=== PATIENT | female | born 1965 | race Caucasian/White ===

== ENCOUNTER 2017-05-09 12:06 | Outpatient (CLI) | payer BC ==
[~2017-05-09] VITALS: Ht 157.5 cm; Wt 59.1 kg
[~2017-05-09 12:06] MED LIST: LVT.112T PO
[2017-05-09] MEDS ORDERED: CHOL500061 PO (12:20)
[2017-05-09] MEDS ORDERED: CALC600T12 PO (12:20)
[2017-05-09] MEDS ORDERED: ASCO-129 PO (12:20)
[2017-05-09] MEDS ORDERED: VITA400C60 PO (12:20)
[2017-05-09] MEDS ORDERED: VITA1CAP PO (12:20)
[2017-05-09] MEDS ORDERED: BACI1CAP6 PO (12:20)
[2017-05-09] MEDS ORDERED: LORA10TA76 PO (12:21)
[2017-05-09 12:22] VITALS: BP 107/56
[2017-05-09 12:48] LABS: BASOPHILS % (AUTO) 0 % (0-10); EOSINOPHILS # (AUTO) 0.3 10^3/uL (0.0-0.3); EOSINOPHILS % (AUTO) 3 % (0-10); LYMPHOCYTES % (AUTO) 21 % (12-44); MEAN CORPUSCULAR HEMOGLOBIN 31 PG (25-34); MEAN CORPUSCULAR HGB CONC 34 G/DL (32-36); MEAN CORPUSCULAR VOLUME 91 FL (80-99); MEAN PLATELET VOLUME 10.2 FL (7.4-10.4); MONOCYTES # (AUTO) 1.1 X 10^3 (0.0-1.0); MONOCYTES % (AUTO) 12 % (0-12); NEUTROPHILS % (AUTO) 63 % (42-75); PLATELET COUNT 335 10^3/uL (130-400); RED BLOOD COUNT 4.56 10^6/uL (4.35-5.85); RED CELL DISTRIBUTION WIDTH 12.6 % (10.0-14.5); WHITE BLOOD COUNT 9.5 10^3/uL (4.3-11.0)
== END 2017-05-09 14:10 | disposition home or self-care (01) ==
LOC: PREOP 12:06
PROVIDERS: ATTEND Obstetrics & Gynecology
DX: Z01.812 Encounter for preprocedural laboratory examination (principal); Z11.2 Encounter for screening for other bacterial diseases; N75.0 Cyst of Bartholin's gland
CPT/HCPCS: 36415; 85025; 86850; 86900; 86901; 87081

== ENCOUNTER 2017-05-15 06:55 | Day surgery (SDC) | payer BC ==
[~2017-05-15] VITALS: Ht 157.5 cm; Wt 59.1 kg
[~2017-05-15 06:55] MED LIST changes: +ASCO-129 PO; +BACI1CAP6 PO; +CALC600T12 PO; +CHOL500061 PO; +LORA10TA76 PO; +VITA1CAP PO; +VITA400C60 PO
[2017-05-15] MEDS ORDERED: LACTATED RINGERS 1,000 ML IV PRN (07:10)
[2017-05-15] MEDS ORDERED: MIDAZOLAM 2 MG/2 ML (VERSED) VIAL IV ONE (07:15)
[2017-05-15 07:30] VITALS: BP 102/47
[2017-05-15] MEDS ORDERED: metroNIDAZOLE 500MG/100ML IVPB 100 ML ONE (07:36)
[2017-05-15] MEDS ORDERED: ceFAZolin 1,000 MG (ANCEF) VIAL ONE (07:36)
[2017-05-15] MEDS ORDERED: NS (IVPB) 50 ML ONE (07:36)
[2017-05-15] MEDS ORDERED: CATHETER FLUSH 10 ML SYR IV PRN (07:45)
[2017-05-15] MEDS ORDERED: metroNIDAZOLE 500 MG/100 ML IVPB (PRE-MIX) IV ONE (07:45)
[2017-05-15] MEDS ORDERED: ceFAZolin 1 GM/NS 50 ML IVPB IV ONE ×2 (07:45)
[2017-05-15] MEDS ORDERED: proPOfol 200 MG/20 ML (DIPRIVAN) VIAL IV ONE (08:44)
[2017-05-15] MEDS ORDERED: fentaNYL INJECTION 100 MCG/2 ML AMP ONE ×2 (08:45→09:25)
[2017-05-15] MEDS ORDERED: MIDAZOLAM 2 MG/2 ML (VERSED) VIAL ONE (08:45)
--- NOTE | 2017-05-15 08:48 | Progress Note-Pre Operative ---
Pre-Operative Progress Note H&P Reviewed The H&P was reviewed, patient examined and no changes noted. Date Seen by Provider: May 15, 2017 Time Seen by Provider: 08:35 Date H&P Reviewed: May 15, 2017 Time H&P Reviewed: 08:35 Pre-Operative Diagnosis: Bartholin's Gland Cyst, Postmenopausal SINGH PENDLETON DO May 15, 2017 8:48 am
[2017-05-15] MEDS ORDERED: LACTATED RINGERS 1,000 ML IV ONE (08:55)
[2017-05-15] MEDS ORDERED: SEVOFLURANE (ULTANE) 15 ML INHAL SOLN ONE ×3 (08:55→09:31)
[2017-05-15] MEDS ORDERED: BUPIVACAINE 0.25% 30 ML (SENSORCAINE) VIAL ONE (09:13)
[2017-05-15] MEDS ORDERED: DEXAMETHASONE PF 10 MG/ML (DECADRON) VIAL ONE (09:31)
[2017-05-15] MEDS ORDERED: ONDANSETRON 4 MG/2 ML (SDV) Z0FRAN ONE (09:31)
[2017-05-15] MEDS ORDERED: D5 LR IV SOLUTION 1,000 ML IV SCH (09:55)
[2017-05-15] MEDS ORDERED: KETOROLAC 30 MG/ML VIAL IVP ONE ×2 (10:00→10:45)
[2017-05-15] MEDS ORDERED: ONDANSETRON 4 MG/2 ML (SDV) Z0FRAN IVP PRN ×2 (10:00→10:45)
[2017-05-15] MEDS ORDERED: HYDROcodone/APAP 5 MG/325 MG (LORTAB) TAB PO PRN (10:00)
--- NOTE | 2017-05-15 10:05 | Discharge Inst-Women's Service ---
Discharge Inst-Women's Serv Depart Medication/Instructions New, Converted or Re-Newed RX: RX on Chart Consults/Follow Up Additional Follow Up: Yes Orders/Referrals Return to [facility] office in 2-3 weeks Activity Activity: Activity as Tolerated Driving Instructions: No Driving for 1 Week NO SMOKING: NO SMOKING Nothing Inside Vagina: No Douching, No Towner, No Tampons Diet Discharge Diet: No Restrictions Symptoms to Report to : Bleeding Excessive, Pain Increased, Fever Over 101 Degrees F, Vaginal Bleeding Increase, Questions/Concerns For Any Problems or Questions: Contact Your Physician Skin/Wound Care Infection Signs and Symptoms: Increased Redness, Foul Odor of Wound, Increased Drainage, Skin Itchy or Has a Rash, Increased Swelling, Temperature Above 101 F Bathing Instructions: Shower (sitz baths) SINGH PENDLETON DO May 15, 2017 10:05
[2017-05-15] MEDS ORDERED: IBUP-1773 PO (10:06)
[2017-05-15] MEDS ORDERED: HYDR-3812 PO (10:06)
[2017-05-15] MEDS ORDERED: morphine INJ 10 MG/ML 1ML (SYR OR VIAL) ONE (10:23)
[2017-05-15] MEDS ORDERED: morphine INJ 10 MG/ML 1ML (SYR OR VIAL) IVP PRN (10:45)
[2017-05-15 10:55] VITALS: BP 101/59
--- NOTE | 2017-05-15 10:59 | Progress Note-Post Operative ---
Post-Operative Progess Note Surgeon (s)/Tug Hand (s) Surgeon SINGH PENDLETON DO Tug Hand: none Pre-Operative Diagnosis Bartholin's Gland Cyst, Postmenopausal Post-Operative Diagnosis same Procedure & Operative Findings Date of Procedure 05/15/17 Procedure Performed/Findings Urine output: 30 ML's Fluids 700 mL's of lactate ringer solution Findings a enlarged right Bartholin's gland with purulent exudate expressed upon puncture. Patient was taken to the operating room where general anesthesia was found to be adequate. She's placed in the dorsal lithotomy position and prepped and draped in the normal sterile fashion. A timeout is performed. I then infiltrated the mucosa and submucosa of the surrounding tissue of the Bartholin' s gland using quarter percent Marcaine to help with postoperative pain management. I then perform an elliptical incision between 7 and 9 o'clock at the mucocutaneous junction exposing the submucosa, I removed the mucosa and cutaneous tissue of this area. I then created a puncture wound at the superior apex of my elliptical incision and copious amounts of purulent exudate are expressed. I collect anaerobic and aerobic cultures of this purulent exudate. I proceed with elliptically excising a portion of the cyst wall using Metzenbaum scissors. I then using 2-0 Vicryl suture, in an interrupted fashion marsupialized the cyst by sewing the cyst wall to the mucosa and subcutaneous tissue leaving it open. After which hemostasis is noted and the cyst itself is copiously irrigated using normal saline. The patient tolerated the procedure well and was taken the recovery area in stable condition. Lap and sponge count is correct at the end of the procedure, instrument count is correct as well. Anesthesia Type GETA Estimated Blood Loss Estimated blood loss (mL): 20 Specimens/Packing Specimens Removed gland culture, and cyst wall SINGH PENDLETON DO May 15, 2017 10:59 am
[2017-05-15] MEDS ORDERED: DOXY100T19 PO (11:00)
[2017-05-15 11:25] VITALS: BP 110/59
[2017-05-15 11:55] VITALS: BP 116/61
[2017-05-15] MEDS ORDERED: IBUPROFEN 600 MG (MOTRIN) TAB PO SCH (12:00)
== END 2017-05-15 12:15 | disposition home or self-care (01) ==
LOC: SDC 06:55
PROVIDERS: ATTEND Obstetrics & Gynecology
DX: N75.0 Cyst of Bartholin's gland (principal); F17.210 Nicotine dependence, cigarettes, uncomplicated; Z79.899 Other long term (current) drug therapy; Z78.0 Asymptomatic menopausal state
CPT/HCPCS: 87070; 87075; 87077; 87186; 87205; 88304; 94664

== ENCOUNTER → 2020-09-12 | Outpatient (CLI) | payer BC ==
[~2020-09-12] MED LIST changes: +ACHD5005 PO; -CALC600T12 PO; +CLC600T PO; +DOXY100T31 PO; +IBUP-1773 PO
[2020-09-12 17:50] LABS: BASOPHILS # (AUTO) 0.1 10^3/uL (0.0-0.1); BASOPHILS % (AUTO) 1 % (0-10); EOSINOPHILS # (AUTO) 0.5 10^3/uL (0.0-0.3); EOSINOPHILS % (AUTO) 6 % (0-10); HEMATOCRIT 44 % (35-52); HEMOGLOBIN 14.7 g/dL (11.5-16.0); LYMPHOCYTES # (AUTO) 2.6 10^3/uL (1.0-4.0); LYMPHOCYTES % (AUTO) 29 % (12-44); MEAN CORPUSCULAR HEMOGLOBIN 32 pg (25-34); MEAN CORPUSCULAR HGB CONC 34 g/dL (32-36); MEAN CORPUSCULAR VOLUME 95 fL (80-99); MEAN PLATELET VOLUME 9.5 fL (9.0-12.2); MONOCYTES % (AUTO) 11 % (0-12); NEUTROPHILS # (AUTO) 4.6 10^3/uL (1.8-7.8); NEUTROPHILS % (AUTO) 53 % (42-75); PLATELET COUNT 393 10^3/uL (130-400); WHITE BLOOD COUNT 8.7 10^3/uL (4.3-11.0)
--- NOTE | 2020-09-12 18:05 | Diagnostic Imaging Report ---
INDICATION: Cough and wheezing. Time of exam 5:58 p.m. No prior studies are available for comparison. FINDINGS: The heart size is normal. The pulmonary vascularity is unremarkable. The lungs are clear. No infiltrate, effusion or pneumothorax is detected. IMPRESSION: No acute cardiopulmonary process is detected. Dictated by: Dictated on workstation # [id number]
== END ==
LOC: RAD 17:34
PROVIDERS: ATTEND Family Medicine
DX: R06.02 Shortness of breath (principal); R06.2 Wheezing; R05 Cough
CPT/HCPCS: 36415; 71046; 85025

== ENCOUNTER → 2021-01-18 | Outpatient (CLI) | payer BC ==
[~2021-01-18] MED LIST changes: +BECL10.6 IH; +BUPR150T24 PO; +HOLD METFORMIN - RECEIVED CONTRAST 20 ML VIAL IV SCH; +IOHEXOL 350 MG/ML 100 ML (OMNIPAQUE 350) VIAL IV ONE; +LEVO112T55 PO; +MONT10TA32 PO
[2021-01-18 08:20] LABS: CREATININE SERUM 0.83 MG/DL (0.60-1.30); GFR ESTIMATED > 60
[2021-01-18 08:21] LABS: BUN/CREATININE RATIO 11
--- NOTE | 2021-01-18 09:34 | Diagnostic Imaging Report ---
EXAMINATION: CT Chest with intravenous contrast. TECHNIQUE: Multiple contiguous axial images were obtained through the chest after the uneventful administration of intravenous contrast. All CT scans use one or more of the following dose optimizing techniques: automated exposure control, MA and/or KvP adjustment based on a patient size and exam type, or iterative reconstruction. HISTORY: Cough, shortness of breath, hemoptysis. COMPARISON: Chest radiograph 09/12/2020 FINDINGS: Thyroid: The thyroid is diminutive. Mediastinum: Heart size is normal without significant pericardial effusion. The aorta is normal in caliber. No suspicious mediastinal lymphadenopathy. Lungs and airways: There is a left perihilar soft tissue mass measuring approximately 3.0 x 2.6 cm. There is postobstructive atelectasis or consolidation within the left lower lobe. No pleural effusion or pneumothorax. There is occlusion of the left lower lobe bronchus. Upper abdomen: The subphrenic structures are normal. Musculoskeletal: Degenerative changes of the spine without suspicious osseous lesion or compression fracture. IMPRESSION: 1. A 3.0 x 2.6 cm left perihilar mass which obstructs the left lower lobe bronchi resulting in left lower lobe obstructive atelectasis or post obstructive pneumonia. These findings are highly concerning for a primary pulmonary or bronchial neoplasm. This lesion appears to be amenable to biopsy by bronchoscopy. Dictated by: Dictated on workstation # [id number]
== END ==
LOC: RAD 08:45
PROVIDERS: ATTEND Family Medicine
DX: R91.8 Other nonspecific abnormal finding of lung field (principal); Z87.891 Personal history of nicotine dependence
CPT/HCPCS: 36415; 71260; 82565; 84520

== ENCOUNTER 2021-01-22 09:20 | Outpatient (CLI) | payer BC ==
[~2021-01-22] VITALS: Ht 157.5 cm; Wt 71.6 kg
[~2021-01-22 09:20] MED LIST changes: -BECL10.6 IH; -BUPR150T24 PO; -HOLD METFORMIN - RECEIVED CONTRAST 20 ML VIAL IV SCH; -IOHEXOL 350 MG/ML 100 ML (OMNIPAQUE 350) VIAL IV ONE; -LEVO112T55 PO; -MONT10TA32 PO
[2021-01-22] MEDS ORDERED: LEVO112T55 PO (10:09)
[2021-01-22] MEDS ORDERED: BECL10.6 IH (10:11)
[2021-01-22] MEDS ORDERED: BUPR150T24 PO (10:11)
[2021-01-22] MEDS ORDERED: MONT10TA32 PO (10:11)
== END 2021-01-22 10:12 ==
LOC: PREOP 09:20
PROVIDERS: ATTEND Internal Medicine Critical Care Medicine
DX: Z01.812 Encounter for preprocedural laboratory examination (principal); R91.8 Other nonspecific abnormal finding of lung field; R05 Cough; Z20.822 Contact with and (suspected) exposure to COVID-19
CPT/HCPCS: 87635

== ENCOUNTER → 2021-01-23 | Outpatient (CLI) | payer BC ==
[~2021-01-23] MED LIST changes: +BECL10.6 IH; +BUPR150T24 PO; +CALC600T91 PO; -CLC600T PO; +LEVO112T55 PO; +MONT10TA32 PO
--- NOTE | 2021-01-23 13:34 | Diagnostic Imaging Report ---
INDICATION: Left lower lobe lung mass. TECHNIQUE: Serum blood glucose level at the time of injection is 96 mg/dL. Patient was administered 13.7 mCi F-18 FDG intravenously in the right hand and PET imaging was performed from the top of the skull through mid thighs. Noncontrast CT was also performed for attenuation correction and anatomic correlation. COMPARISON: No prior PET/CT study is available for comparison. Comparison is made with conventional CT chest from 01/18/2021. FINDINGS: There is symmetric activity throughout the brain. Soft tissues of the neck are unremarkable. There is a hypermetabolic mass arising from the left posterior hilum, corresponding with soft tissue mass noted on recent CT. This measures 3.4 cm in diameter and demonstrates an SUV max of approximately 22.9. The right hilum is unremarkable. No mediastinal hypermetabolism is seen. There is postobstructive consolidation in the left lower lobe but no suspicious hypermetabolism in the area of consolidation is seen. Abdomen and pelvis demonstrate physiologic activity throughout the GI and tract. No suspicious hypermetabolic foci are detected. IMPRESSION: Hypermetabolic left hilar mass, consistent with primary bronchial neoplasm. No metabolic foci are identified. Dictated by: Dictated on workstation # [id number]
== END ==
LOC: RAD 10:52
PROVIDERS: ATTEND Nurse Practitioner Family
DX: R91.8 Other nonspecific abnormal finding of lung field (principal); R04.2 Hemoptysis
CPT/HCPCS: 78815; A9552

== ENCOUNTER 2021-01-24 06:55 | Day surgery (SDC) | payer BC ==
[2021-01-24] VITALS (9 sets, daily range): BP systolic 92–124; BP diastolic 54–75
[~2021-01-24] VITALS: Ht 157.5 cm; Wt 71.6 kg
[2021-01-24] MEDS ORDERED: LIDOCAINE PF 2% 5 ML (XYLOCAINE) VIAL INJ ONE (06:56)
[2021-01-24] MEDS ORDERED: LIDOCAINE PF 1% 2 ML VIAL IJ ONE (06:56)
[2021-01-24] MEDS ORDERED: LACTATED RINGERS 1,000 ML IV ONE (07:02)
[2021-01-24] MEDS ORDERED: LACTATED RINGERS 1,000 ML IV STA (07:04)
[2021-01-24] MEDS ORDERED: SEVOFLURANE (ULTANE) 15 ML INHAL SOLN ONE (07:06)
[2021-01-24] MEDS ORDERED: proPOfol 200 MG/20 ML (DIPRIVAN) VIAL IV ONE (07:06)
[2021-01-24] MEDS ORDERED: fentaNYL INJ 100 MCG/2 ML AMP ONE (07:06)
[2021-01-24] MEDS ORDERED: LIDOCAINE PF 2% 5 ML (XYLOCAINE) VIAL ONE (07:07)
[2021-01-24] MEDS ORDERED: GLYCOPYRROLATE 0.2 MG/ML (ROBINUL) 2 ML VIAL ONE (07:07)
[2021-01-24] MEDS ORDERED: ONDANSETRON 4 MG/2 ML (SDV) Z0FRAN ONE (07:07)
[2021-01-24] MEDS ORDERED: MIDAZOLAM 2 MG/2 ML (VERSED) VIAL ONE (07:07)
[2021-01-24] MEDS ORDERED: NEOSTIGMINE 3 MG/3 ML VIAL ONE (07:08)
[2021-01-24] MEDS ORDERED: ROCURONIUM 10 MG/ML 5 ML SYRINGE IV ONE (07:08)
--- NOTE | 2021-01-24 07:14 | Progress Note-Pre Operative ---
Pre-Operative Progress Note H&P Reviewed The H&P was reviewed, patient examined and no changes noted. Time Seen by Provider: 07:45 Date H&P Reviewed: Jan 24, 2021 Time H&P Reviewed: 07:14 Pre-Operative Diagnosis: lung mass IBETH MCGRAW DO Jan 24, 2021 07:14
--- NOTE | 2021-01-24 07:16 | Pulmonary Procedures ---
Pulmonary Procedures Date of Procedure Date of Service: Jan 24, 2021 Bronch Bronchoscopy with Right bronchus wash, brush, and forcep bx. Preop DX: lung mass PostOP DX: lung mass with left bronchus mass with near complete occlusion of left bronchus. Complications: None Pt was sedated per anesthesia. Bronchoscopy was advanced through the ET tube and an anatomical undertaken down to the segmental bronchi bilaterally. left bronchial mass noted. Bronchoscopy with left bronchus wash, brush, and forcep bx. . Pt tolerated procedure well. No complications noted. IBETH MCGRAW DO Jan 24, 2021 07:15
--- NOTE | 2021-01-24 08:33 | Anesthesia-General Post-Op ---
General Patient Condition Mental Status/LOC: Same as Preop Cardiovascular: Satisfactory Nausea/Vomiting: Absent Respiratory: Satisfactory Pain: Controlled Complications: Absent Post Op Complications Complications None Follow Up Care/Instructions Patient Instructions None needed. Anesthesia/Patient Condition Patient Condition Patient is doing well, no complaints, stable vital signs, no apparent adverse anesthesia problems. CHANTAL MONGE DO Jan 24, 2021 08:33
[2021-01-24] MEDS ORDERED: ONDANSETRON 4 MG/2 ML (SDV) Z0FRAN IVP PRN (08:45)
[2021-01-24] MEDS ORDERED: morphine INJ 10 MG/ML 1ML (SYR OR VIAL) IVP ONE (08:45)
== END 2021-01-24 09:55 | disposition home or self-care (01) ==
LOC: ENDO 06:55
PROVIDERS: ATTEND Internal Medicine Critical Care Medicine
DX: C34.92 Malignant neoplasm of unspecified part of left bronchus or lung (principal); D64.9 Anemia, unspecified; F17.210 Nicotine dependence, cigarettes, uncomplicated; Z79.899 Other long term (current) drug therapy; Z79.51 Long term (current) use of inhaled steroids
CPT/HCPCS: 71045; 87015; 87070; 87077; 87101; 87116; 87186; 87205; 87206; 88112; 88305; 88312; 94640

== ENCOUNTER → 2021-01-29 | Outpatient (CLI) | payer BC ==
[2021-01-29 18:02] LABS: BASOPHILS # (AUTO) 0.1 10^3/uL (0.0-0.1); BASOPHILS % (AUTO) 1 % (0-10); EOSINOPHILS # (AUTO) 0.4 10^3/uL (0.0-0.3); EOSINOPHILS % (AUTO) 4 % (0-10); HEMATOCRIT 43 % (35-52); HEMOGLOBIN 14.5 g/dL (11.5-16.0); LYMPHOCYTES # (AUTO) 2.3 10^3/uL (1.0-4.0); LYMPHOCYTES % (AUTO) 24 % (12-44); MEAN CORPUSCULAR HEMOGLOBIN 32 pg (25-34); MEAN CORPUSCULAR HGB CONC 34 g/dL (32-36); MEAN CORPUSCULAR VOLUME 94 fL (80-99); MEAN PLATELET VOLUME 9.7 fL (9.0-12.2); MONOCYTES # (AUTO) 1.1 10^3/uL (0.0-1.0); MONOCYTES % (AUTO) 12 % (0-12); NEUTROPHILS # (AUTO) 5.7 10^3/uL (1.8-7.8); NEUTROPHILS % (AUTO) 60 % (42-75); PLATELET COUNT 435 10^3/uL (130-400); WHITE BLOOD COUNT 9.6 10^3/uL (4.3-11.0)
[2021-01-29 19:31] LABS: EOSINOPHILS % (MANUAL) 6 %; LYMPHOCYTES % (MANUAL) 29 %; MONOCYTES % (MANUAL) 3 %; NEUTROPHILS % (MANUAL) 62 %; RBC MORPH NORMAL
== END ==
LOC: LAB 17:41
PROVIDERS: ATTEND Nurse Practitioner Family
DX: A49.02 Methicillin resistant Staphylococcus aureus infection, unspecified site (principal)
CPT/HCPCS: 36415; 84145; 85007; 85027

== ENCOUNTER → 2021-01-31 | Outpatient (CLI) | payer BC ==
[~2021-01-31] MED LIST changes: +RT-ALBUTEROL SULF 2.5 MG/3 ML PRE-MIX VIAL INH ONE
== END ==
LOC: RT 08:00
PROVIDERS: ATTEND Nurse Practitioner Family
DX: R06.00 Dyspnea, unspecified (principal)
CPT/HCPCS: 94060; 94726; 94729